=== PATIENT | female | born 1950 | race Caucasian/White ===

== ENCOUNTER → 2016-11-04 | Outpatient (CLI) | payer OTHER ==
[~2016-11-04] MED LIST: ACID REDUCER150 MG PO; AMLODIPINE BESYL5 MG PO; BACTRIM DS TABL1 TA1 PO; BENTYL20 MG PO; CIPRO PO; CLINDAMYCIN HC300 MG PO; FLAGYL PO; IMMODIUM1 MG/5 M1; KEFLEX500 MG PO; LEVAQUIN250 MG PO; LORCET HD 10-31 EACH; LORTAB 7.51 TAB 7.5/ DOB; LORTAB 7.51 TAB PO; LYRICA; METRONIDAZOLE PO; NEURONTIN800 MG PO; NEXIUM PO; NO MEDICATIONS; NORVASC PO; PHENERGAN25 MG PO; PROTONIX PO; PROTONIX40 M1 PO; REMERON15 MG PO; SPIRIVA18 MCG; TRAMADOL HCL50 M1 PO; TRIAMTERENE-HC1 EAC1 PO; VICODIN 5/500 T1 TAB PO; VOLTAREN75 MG PO; ZITHROMAX1 G/PKT PO; ZOFRAN ODT4 MG PO; ZOFRAN PO; ZOLOFT50 MG PO
--- NOTE | ~2016-11-04 | MY11 ---
[facility] A Service of [facility] RADIOLOGY TEXT RESULTS PATIENT: DAI WOOD LOCATION: [facility] : 48 UNIT #: [id number] AGE: [address]: MARLEN MALDONADO MD SEX: F ORDER DR: [id number] [place] [id number] [facility]. [place], [place] [address] [id number] MR#: [id number] Acc #: [id number] NAME: DAI WOOD. : 1950 SEX: F STUDY DATE/TIME: 11/04/2016 13:22 UNIT: [facility] ROOM: STUDY DESCRIPTION: MY Mammogram Screening Dig Donato Attending Physician: Marlen Maldonado M.D. Referring Physician: Marlen Maldonado M.D. Ordering Physician: Marlen Maldonaod M.D. Primary Care Physician: Marlen Maldonado M.D. MEDICAL IMAGING REPORT This report is preliminary unless electronic signature is present EXAM Bilateral digital screening mammogram with CAD. INDICATION Breast cancer screening. 66-year-old asymptomatic female. No personal or family history of breast cancer. COMPARISONS May 25, 2015 and July 29, 2007 FINDINGS There are scattered fibroglandular tissues. No suspicious findings are present. IMPRESSION No mammographic evidence of malignancy. Annual screening mammography and clinical breast exam are recommended. A result letter will be sent to the patient. Patients over the age of 40 are entered into a reminder system with target due date for the next mammogram. BIRADS: 1 Negative Dictated by... Magnus Rainey M.D. THIS IS AN ELECTRONICALLY VERIFIED REPORT Magnus Rainey M.D. at 11/07/2016 2:54 PM LAVELL/susan [facility] A Service [facility] RADIOLOGY TEXT RESULTS PATIENT: DAI WOOD LOCATION: [facility] : 48 UNIT #: [id number] AGE: [address]: MARLEN MALDONADO MD SEX: F ORDER DR: TD: 11/04/2016 17:43 JOB #: [id number] MEDICAL IMAGING REPORT Page 1 of 1 COPY
== END | disposition home or self-care (01) ==
LOC: CECH 12:21
DX: Z12.31 Encounter for screening mammogram for malignant neoplasm of breast (principal); R01.1 Cardiac murmur, unspecified; I08.1 Rheumatic disorders of both mitral and tricuspid valves
CPT/HCPCS: 93306; G0202

== ENCOUNTER 2016-11-26 20:21 | Emergency (ER) | payer OTHER ==
--- NOTE | ~2016-11-26 | CT4 ---
[facility] A Service of [facility] RADIOLOGY TEXT RESULTS PATIENT: DAI WOOD LOCATION: SED : 48 UNIT #: [id number] AGE: [address]: Jose C Tovar SEX: F ORDER DR: [id number] [place] [id number] E MR#: [id number] Acc #: [id number] NAME: DAI WOOD : 1950 SEX: F STUDY DATE/TIME: 11/26/2016 23:11 UNIT: SED ROOM: STUDY DESCRIPTION: CT Abd and Pelv Wo Cont Attending Physician: Jose C Tovar P.A.-C. Ordering Physician: Jose C Tovar P.A.-C. Primary Care Physician: Leticia Danielle M.D. MEDICAL IMAGING REPORT This report is preliminary unless electronic signature is present. EXAM Abdomen and pelvis CT, 11/26 2311 hours INDICATIONS Diarrhea and inability to urinate with abdominal pain for 2 days. Abnormal urinalysis today. Hematuria. TECHNIQUE Axial noncontrast images were obtained through the abdomen and pelvis. Multiplanar reformats were obtained. Comparison made with 07/02/2013. This CT exam was performed with one or more of the following radiation dose reduction techniques: Automatic exposure control, adjustment of mA and/or kV according to patient size, and iterative reconstruction. FINDINGS ABDOMEN: There is some dependent atelectasis in both lung bases. There is coronary artery disease. Gallbladder is surgically absent. There is a tiny, nonobstructing stone in the lower pole of the right kidney. There is a nonobstructing stone in the lower pole of the left kidney measuring 4 mm in size. No ureteral stones are seen on either side, and there is no hydronephrosis. There is fatty infiltration of the liver. Unenhanced solid organs are otherwise normal. No free fluid or adenopathy is seen. The unopacified GI tract is normal. PELVIS: The appendix is normal. The remainder of the unopacified GI tract is normal as well, except for mild sigmoid diverticulosis. No lower ureteral stones. Urinary bladder is normal. Uterus is surgically absent. No free fluid. There is stable mild, grade I spondylolisthesis of L4 on L5. IMPRESSION 1. No acute findings in the abdomen or pelvis. 2. Small, bilateral nonobstructing renal stones. No ureteral stones are STS. [facility] A Service of [facility] RADIOLOGY TEXT RESULTS PATIENT: DAI WOOD LOCATION: [facility] : 48 UNIT #: [id number] AGE: [address]: Jose C Tovar PAC SEX: F ORDER DR: identified, and there is no hydronephrosis. 3. Cholecystectomy and hysterectomy. 4. Mild sigmoid diverticulosis. Normal appendix. 5. Fatty liver. Dictated by... Lucas Kendrick Jr., M.D. THIS IS AN ELECTRONICALLY VERIFIED REPORT Lucas Kendrick Jr., M.D. at 11/27/2016 6:01 AM CRYSTAL/bri TD: 11/27/2016 00:25 JOB #: [id number] MEDICAL IMAGING REPORT Page 1 of 1
[~2016-11-26 20:21] MED LIST changes: -ACID REDUCER150 MG PO; -LORCET HD 10-31 EACH; -NEURONTIN800 MG PO; -PROTONIX40 M1 PO; -SPIRIVA18 MCG; -ZOFRAN PO; -ZOLOFT50 MG PO
[2016-11-26] MEDS ORDERED: ACID REDUCER150 MG PO (21:04)
[2016-11-26] MEDS ORDERED: LORCET HD 10-31 EACH (21:05)
[2016-11-26] MEDS ORDERED: SPIRIVA18 MCG (21:06)
[2016-11-26] MEDS ORDERED: NEURONTIN800 MG PO (21:06)
[2016-11-26 21:18] LABS: BASOPHIL# 0.1 X10e3 (0-0.3); BASOPHIL% 1.4 % (0-2.5); EOSINOPHIL% 0.4 % (0.0-7.0); HEMOGLOBIN 15.8 gm/dL (12.0-16.0); LYMPHOCYTE# 2.5 X10e3 (1.0-3.5); LYMPHOCYTE% 33.2 % (17.0-45.0); MEAN CELL VOLUME 89.2 FL (83-96); MEAN CORPUSCULAR HEMOGLOBIN 31.3 PG (28-34); MEAN CORPUSCULAR HGB CONC 35.1 g/dL (30-36); MEAN PLATELET VOLUME 9.7 FL (6.5-11.5); MONOCYTE# 0.5 X10e3 (0-1.0); MONOCYTE% 7.1 % (3.0-12.0); NEUTROPHIL# 4.4 X10e3 (1.5-7.1); NEUTROPHIL% 57.9 % (40-75); PLATELET COUNT 188 X10e3 (140-420); RED BLOOD COUNT 5.05 X10e (3.90-5.30); RED CELL DISTRIBUTION WIDTH 13.9 % (11.0-15.5); WHITE BLOOD COUNT 7.5 X10e3 (4.0-10.5)
[2016-11-26 21:19] LABS: DIFF IND NO
[2016-11-26 21:37] LABS: ALBUMIN SERUM 4.3 g/dL (3.5-5.0); BILIRUBIN, DIRECT 0.1 mg/dL (0.0-0.2); BILIRUBIN,INDIRECT 0.5 mg/dL (0.0-0.9); BILIRUBIN,TOTAL 0.6 mg/dL (0.2-2.0); BUN/CREATININE RATIO 21.66; CALCIUM SERUM 9.4 mg/dL (8.4-10.2); CREATININE SERUM 1.2 mg/dL (0.6-1.4); GLOM FILT RATE Estimated 46.4 mL/min (>60); POTASSIUM 3.4 mmol/L (3.5-5.1); PROTEIN TOTAL SERUM 7.6 g/dL (6.0-8.3)
[2016-11-26 21:52] LABS: URINE SOURCE CLEAN CATCH
[2016-11-26 21:54] LABS: URINE APPEARANCE HAZY; URINE BILIRUBIN NEG (NEG); URINE BLOOD TRACE-LYSED (NEG); URINE COLOR YELLOW; URINE GLUCOSE NEG (NORM); URINE KETONE 1+ (NEG); URINE LEUKOCYTE ESTERASE 1+ (NEG); URINE NITRATE NEG (NEG); URINE PROTEIN NEG (NEG); URINE UROBILINOGEN 0.2 MG/DL (NORM)
[2016-11-26 21:57] LABS: MICRO INDICATED? YES
[2016-11-26 22:01] LABS: CULTURE INDICATED? YES; URINE AMORPHOUS SEDIMENT AMORP PHOSPHATES; URINE BACTERIA 1+ (NEG); URINE MUCUS PRESENT; URINE SQUAMOUS EPITHELIAL CELL MODERATE /[HPF]
[2016-11-26 22:02] LABS: URINE TRANSITIONAL EPI CELLS FEW /[HPF]
== END 2016-11-27 00:35 | disposition home or self-care (01) ==
LOC: SED 20:21
PROVIDERS: Physician Assistant
DX: R11.2 Nausea with vomiting, unspecified (principal); R19.7 Diarrhea, unspecified; R10.84 Generalized abdominal pain; F17.210 Nicotine dependence, cigarettes, uncomplicated; I10 Essential (primary) hypertension; Z90.49 Acquired absence of other specified parts of digestive tract; Z79.899 Other long term (current) drug therapy
CPT/HCPCS: 36415; 74176; 80048; 80076; 81003; 82150; 83690; 85025; 87086; 96361; 96374; 96375; 99284; J2270; J2405; J2550

== ENCOUNTER 2016-11-27 19:48 | Inpatient (IN) | payer OTHER ==
--- NOTE | ~2016-11-27 | OR ---
Unit #: [id number] #: [id number] Patient: DAI WOOD [id number] [address] [address] [id number] I MR#: [id number] NAME: DAI WOOD. ROOM: 567 Date of Procedure: 11/28/2016 Admission Date: 11/28/2016 Surgeon: Porter West M.D. : 1950 Attending Physician: Violetta Blanco M.D. Primary Care Physician: Leticia Danielle M.D. OPERATIVE REPORT PROCEDURE PERFORMED Esophagogastroduodenoscopy with biopsy. INDICATIONS FOR PROCEDURE Severe epigastric pain, persistent nausea, vomiting, undergoing evaluation with upper endoscopy. MEDICATIONS Monitored anesthesia. POSTOPERATIVE FINDINGS 1. Severe circumferential esophagitis involving distal esophagus. Biopsies taken. 2. Diffuse mild to moderate gastritis. Biopsies taken. 3. Normal duodenum and distal duodenum. PLAN Continue aggressive PPI therapy and symptomatic treatment. DESCRIPTION OF PROCEDURE The patient was explained of the procedure, risks, and benefits along with the risks and benefits of anesthesia. She was brought to the endoscopy room. Propofol anesthesia was given. Bite block was placed. The scope was passed down the mouth into the esophagus, stomach, duodenum, and distal duodenum. Findings as described. Biopsies taken. Gently, I pulled it out of the patient's mouth. She tolerated it well. No major complications were seen. Dictated by... Nany Forrester/giselle TD: 11/28/2016 23:53 JOB #: [id number] Unit #: [id number] #: [id number] Patient: DAI WOOD OPERATIVE REPORT Page 1 of 1 X Porter West MD X PROCEDURE OPERATIVE NOTE
--- NOTE | ~2016-11-27 | CO ---
Unit #: [id number] #: [id number] Patient: DAI WOOD [id number] [facility]. [place], [place] [address] [id number] I MR#: [id number] NAME: DAI WOOD. ROOM: 567 Age: 66 Sex: F Admission Date: 11/28/2016 : 1950 Attending Physician: Violetta Blanco M.D. Primary Care Physician: Leticia Danielle M.D. CONSULTATION REPORT REASON FOR CONSULTATION Persistent nausea and vomiting with diarrhea. HISTORY OF PRESENTING ILLNESS The patient states she was in her usual state of health until about 3 days ago, where she began to have persistent nausea and vomiting. Initially, she noticed dark black stools, but then this gave way to just persistent diarrhea without any noticeable color, nonbloody. She does complain of epigastric pain, burning, severe reflux. Initially, she went to [facility] ER, where she was treated with IV fluids. CT scan was completed at that time, showed only mild diverticular disease, otherwise negative for any acute findings. She was then transferred here for admission and further workup. PAST MEDICAL HISTORY COPD; hypertension; GERD; depression; EGD in 2013, showing a small hiatal hernia, GERD, and mild gastritis; colonoscopy done at that time, also showed multiple polyps; total abdominal hysterectomy; bladder repair; cholecystectomy; bilateral tubal ligation; and tonsillectomy. ALLERGIES None known. HOME MEDICATIONS Spiriva, [place], Zantac, Bentyl, Norvasc, triamterene, Phenergan, Zoloft, Zanaflex, and Neurontin. FAMILY HISTORY Notable for colon cancer. SOCIAL HISTORY The patient lives with her daughter. She is a reformed smoker x9 months. Does not drink alcohol or use illicit drugs. REVIEW OF SYSTEMS A complete 10-point review of systems is completed and negative except as mentioned in the HPI. PHYSICAL EXAMINATION GENERAL: The patient is a 66-year-old female, who is currently lying in bed, moaning. VITAL SIGNS: Temperature 97.7, pulse is 79, respirations 20, blood pressure is 127/62. HEENT: PERRLA. Unit #: [id number] #: [id number] Patient: DAI WOOD NECK: Supple. CARDIAC: S1 and S2. LUNGS: Clear to auscultation. ABDOMEN: Soft, rounded, nontender, and nondistended. Positive bowel sounds. NEUROLOGIC: The patient is alert and awake. DIAGNOSTIC STUDIES IMAGING STUDIES: Again, CT of abdomen and pelvis was completed, which showed no acute findings. LABORATORY RESULTS: BUN and creatinine are 21 and 1.1 respectively, potassium is 3.1. White count is 6.9, hemoglobin is 14.3, hematocrit is 43.1, and platelets are 167. ASSESSMENT AND PLAN 1. Persistent nausea, vomiting, and diarrhea. Diarrhea seems to have subsided at this time. We will check stool study if recurs. Plan EGD for today. Rule out esophagitis, gastritis versus ulcers versus others. Continue PPI therapy for now. Further recommendations to follow scope. 2. Gastroesophageal reflux disease. 3. Chronic obstructive pulmonary disease. Thank you for this interesting consult. We will continue to follow along. Dictated by... Joslyn Garner A.P.R.N. for Nany Forrester/giselle TD: 11/29/2016 14:01 JOB #: [id number] CONSULTATION REPORT Page 1 of 1 X X CONSULTATION REPORT
--- NOTE | ~2016-11-27 | CR4 ---
[facility] A Service of [facility] RADIOLOGY TEXT RESULTS PATIENT: DAI WOOD LOCATION: [facility] 567-01 : 48 UNIT #: [id number] AGE: [address]: Jean Linda MD SEX: F ORDER DR: [id number] [facility] [address] [facility]. [place], [place] [address] [id number] I MR#: [id number] Acc #: [id number] NAME: DAI WOOD. : 1950 SEX: F STUDY DATE/TIME: 12/01/2016 17:42 UNIT: [facility] ROOM: [facility] STUDY DESCRIPTION: CR Abdomen Flat Upright or Dec Attending Physician: Jean Linda M.D. Ordering Physician: Porter West M.D. Primary Care Physician: Leticia Danielle M.D. MEDICAL IMAGING REPORT This report is preliminary unless electronic signature is present EXAM Flat and upright abdomen, 12/01/2016 INDICATIONS 66-year-old female with upper abdominal pain for a year that has gotten worse in the past week. No known injury. Hypertension. Distension and bloating. TECHNIQUE Upright and supine views of the abdomen were performed. Correlation is made with CT 11/26/2016. FINDINGS Upright view demonstrates no free air. The gallbladder is surgically absent. There is gaseous distension of small and large bowel. No dilated air-filled loops are seen. No concerning calcifications or mass effect. Mild degenerative change in the lumbar spine. Probable vascular calcification in the right hemipelvis. IMPRESSION 1. Nonspecific but nonobstructive bowel gas pattern. No evidence of free air. 2. Surgical absence of the gallbladder. Dictated by... Sanchez Marroquin M.D. THIS IS AN ELECTRONICALLY VERIFIED REPORT Sanchez Marroquin M.D. at 12/02/2016 10:11 AM BESTY/bri TD: 12/01/2016 22:33 [facility] A Service of [facility] RADIOLOGY TEXT RESULTS PATIENT: DAI WOOD LOCATION: [facility] 567-01 : [birth year] UNIT #: [id number] AGE: [address]: Jean Linda MD SEX: F ORDER DR: JOB #: [id number] MEDICAL IMAGING REPORT Page 1 of 1 COPY
--- NOTE | ~2016-11-27 | DS ---
Unit #: [id number] #: [id number] Patient: DAI WOOD [id number] [address] [place], [place] [address] [id number] I MR#: [id number] NAME: DAI WOOD. ROOM: 567 Age: 66 Sex: F Admission Date: 11/28/2016 : 1950 Discharge Date: 12/02/2016 Attending Physician: Jean Linda M.D. Primary Care Physician: Leticia Danielle M.D. DISCHARGE SUMMARY ADMITTING DIAGNOSES Nausea, vomiting and diarrhea. FURTHER DIAGNOSES 1. Chronic obstructive pulmonary disease. 2. Hypertension. 3. Possible irritable bowel syndrome. DISCHARGE DIAGNOSES Same as above. CONSULTANTS Dr. Porter West. PROCEDURES DONE EGD. Findings on the EGD - Severe circumferential esophagitis involving distal esophagus. Diffuse ooxa-wv-gugtadgf gastritis. Normal duodenum. HISTORY OF PRESENT ILLNESS The patient is a 66-year-old lady with a past medical history of COPD, hypertension, possible IBS. Presented initially to an outlying emergency room with the chief complaint of intractable nausea, vomiting and diarrhea. She did have CT of the abdomen, which did not show anything acute except for diverticulosis. GI was consulted. She was given p.r.n. Zofran, p.r.n. morphine, p.r.n. Phenergan. Slowly her nausea and vomiting improved. She was also given IV fluids. Her stool studies were negative. She did have an EGD. EGD findings were as mentioned above. She did have EGD biopsy reports are pending at this point. She is doing clinically better. She wants to go home. Will request her to follow with Dr. Porter West as an outpatient to review the biopsies. PHYSICAL EXAMINATION ON THE DAY OF DISCHARGE VITAL SIGNS: Temperature 98.6, pulse rate 68, respirations 16, blood pressure 120/74. GENERAL: The patient is alert and oriented x3, lying in bed, no acute distress. The patient is obese. HEENT: Normocephalic, atraumatic. No icterus. CHEST: Bilateral equal air entry. Clear to auscultation. HEART: S1, S2. Regular rate and rhythm. ABDOMEN: Soft, nontender. EXTREMITIES: No edema. Normal pulses. DISCHARGE MEDICATIONS 1. Zoloft 50 mg in the morning. Unit #: [id number] #: [id number] Patient: DAI WOOD 2. Neurontin 400 mg t.i.d. 3. Spiriva 18 mcg inhalation. 4. Zofran 4 mg q.6 p.r.n. nausea and vomiting. 5. Norvasc 10 mg daily. 6. Ranitidine 150 mg p.o. b.i.d. 7. Hydrocodone/Tylenol 10/325 mg 1 tablet p.o. q.6 p.r.n. pain. She is supposed to get this medication from her primary care. We are not giving any prescriptions. 8. Triamterene/HCTZ 37.5/25 mg 1 capsule p.o. daily. 9. Protonix 40 mg p.o. b.i.d. FOLLOWUP She is instructed to follow with her primary care and with gastroenterology in 1-2 weeks. NOTE: Total time spent in her care - 28 minutes. Dictated by... Nany Mixon/stacy TD: 12/02/2016 15:06 JOB #: [id number] DISCHARGE SUMMARY Page 1 of 1 X X DISCHARGE SUMMARY
--- NOTE | ~2016-11-27 | HP ---
Unit #: [id number] #: [id number] Patient: DAI WOOD [id number] [address] [place], [place] [address] [id number] I MR#: [id number] NAME: DAI WOOD. ROOM: 567 Age: 66 Sex: F Admission Date: 11/28/2016 : 1950 Attending Physician: Mali Mayfield M.D. Primary Care Physician: Leticia Danielle M.D. HISTORY AND PHYSICAL CHIEF COMPLAINT Intractable nausea, vomiting, diarrhea with epigastric pain and dehydration. HISTORY This pleasant 66-year-old female with COPD, hypertension, possible IBS per history, GERD, is admitted for intractable nausea, vomiting and diarrhea. The patient reports a two year history of intermittent GI symptoms. Underwent an EGD and colonoscopy by Dr. West and mild gastritis along with small hiatal hernia was noted along with mild GERD. She had multiple polyps removed from the colon in 2013. Was in her usual state of health until three days ago when she developed dark diarrhea, incontinent of stool at times with nonbloody nausea and vomiting, epigastric pain and also a small amount of bright red blood per rectum. Noticed chills and lightheadedness with this. Went to [facility] ER and was treated with IV fluids. CT scan only revealed fatty liver and mild diverticular disease. Did not feel better and came to this emergency department last evening where she was mildly tachycardic. In the ER, she was given morphine, Zofran, bolused with 2 L of fluid, and a gram of Rocephin for mild pyuria. Denies ill contacts, travel, eating anything out of the ordinary, recent antibiotics. PAST MEDICAL HISTORY 1. COPD. 2. The patient states that she has a history of irritable bowel syndrome per Dr. West. 3. Hypertension. 4. Echo, which was normal in 2010. 5. GERD. 6. Depression. 7. Memory issues per the family. 8. EGD 11/2013 - small hiatal hernia, mild GERD, mild gastritis. 9. Colonoscopy in 2013. Multiple polyps which were snared. 10. Total abdominal hysterectomy. 11. Bladder repair. 12. Cholecystectomy. 13. Tonsillectomy. 14. BTL. 15. Negative cystoscopy 07/2013 for hematuria. ALLERGIES No known drug allergies. Unit #: [id number] #: [id number] Patient: DAI WOOD HOME MEDICATIONS 1. Spiriva, one puff daily. 2. [place] q.4 hours as needed. 3. Zantac 15 mg b.i.d. 4. Bentyl 20 mg q.i.d. p.r.n. 5. Norvasc 10 mg daily. 6. Triamterene 37.5 mg daily. 7. Phenergan 25 mg q.i.d. p.r.n. 8. Zoloft 50 mg daily. 9. Zanaflex 4 mg t.i.d. p.r.n. 10. Neurontin 800 mg t.i.d. FAMILY HISTORY Colon cancer. SOCIAL HISTORY The patient moved in with her daughter. Stopped smoking nine months ago, does not drink alcohol. REVIEW OF SYSTEMS Notable for nausea, vomiting, diarrhea, lightheadedness and pedal edema recently, COPD, IBS, hypertension, polyps, GERD, abdominal pain, above mentioned surgeries. All other systems were reviewed and are otherwise negative. PHYSICAL EXAMINATION GENERAL APPEARANCE: Pleasant 66-year-old female who looks to be mildly uncomfortable. VITAL SIGNS: Temperature 97.6, pulse 117, respirations 18, blood pressure 155/91. O2 saturation is 97% on room air. HEENT: Eyes PERRLA. Extraocular muscles are intact. Pharynx is benign. NECK: Supple without adenopathy or thyromegaly. CHEST: Clear. CARDIAC: Normal S1 and S2. Very soft systolic murmur best heard at the right upper sternal border. ABDOMEN: Bowel sounds are present. Epigastric tenderness without rebound or guarding. No hepatosplenomegaly or masses. EXTREMITIES: Without edema. Pedal pulses are present but diminished. No ulcers on the feet. NEUROLOGIC EXAM: The patient is awake, alert, oriented. Cranial nerves are intact. Equal strength throughout. DIAGNOSTIC STUDIES LABORATORY: Admission labs - hematocrit is 46.8, white blood count is 11.4, normal platelet count. SMA-12 - BUN 28, potassium 3.3, CO2 is 20, ALT 80, alkaline phos. 108, lipase normal. Urinalysis - 2+ leukocyte esterase, 10-25 white cells, 5-10 red cells, 3+ bacteria but moderate squamous cells making this a poor specimen. IMAGING: CT scan 11/26/2016 - fatty liver, mild diverticular disease. ASSESSMENT 1. Nausea, vomiting, diarrhea for the past three days: May represent gastroenteritis. The patient, however, does have epigastric pain with the above. Has been experiencing GI issues for the past two Unit #: [id number] #: [id number] Patient: DAI WOOD D years with working diagnosis of irritable bowel syndrome. She is status post multiple polypectomies. 2. Gastroesophageal reflux disease: Mild gastritis on EGD in the past. 3. Hypertension. 4. Chronic obstructive pulmonary disease. 5. Hypokalemia, mild dehydration. 6. Pyuria which could be contamination as this was a poor sample versus urinary tract infection. PLANS 1. IV fluids and supportive treatment. 2. Proton pump inhibitor for now. 3. Stool cultures, check thyroid function tests. Family his concerned about celiac sprue. Therefore, will check antibody test. 4. GI to see. Patient is followed by Dr. West and she requests Dr. West to see her in the morning. 5. Replace potassium, check magnesium and repeat labs in the morning. 6. SCDs for DVT prophylaxis. 7. The patient received one dose of antibiotics pending urine C and S in the ER. Dictated by Mali Mayfield M.D. AML/df TD: 11/28/2016 05:22 JOB #: [id number] HISTORY AND PHYSICAL Page 1 of 1 X Mali Mayfield MD X HISTORY AND PHYSICAL
[~2016-11-27 19:48] MED LIST changes: +ACID REDUCER150 MG PO; +LORCET HD 10-31 EACH; +NEURONTIN800 MG PO; +SPIRIVA18 MCG
[2016-11-27 21:44] LABS: BASOPHIL# 0.1 X10e3 (0-0.3); BASOPHIL% 0.9 % (0-2.5); EOSINOPHIL% 0.2 % (0.0-7.0); HEMATOCRIT 46.8 % (35.0-45.0); HEMOGLOBIN 15.8 gm/dL (12.0-16.0); LYMPHOCYTE# 2.9 X10e3 (1.0-3.5); LYMPHOCYTE% 25.8 % (17.0-45.0); MEAN CELL VOLUME 89.1 FL (83-96); MEAN CORPUSCULAR HEMOGLOBIN 30.1 PG (28-34); MEAN CORPUSCULAR HGB CONC 33.7 g/dL (30-36); MEAN PLATELET VOLUME 9.6 FL (6.5-11.5); MONOCYTE# 0.7 X10e3 (0-1.0); MONOCYTE% 6.6 % (3.0-12.0); NEUTROPHIL# 7.6 X10e3 (1.5-7.1); NEUTROPHIL% 66.5 % (40-75); PLATELET COUNT 200 X10e3 (140-420); RED BLOOD COUNT 5.25 X10e (3.90-5.30); RED CELL DISTRIBUTION WIDTH 13.7 % (11.0-15.5)
[2016-11-27 21:46] LABS: DIFF IND NO; WHITE BLOOD COUNT 11.4 X10e3 (4.0-10.5)
[2016-11-27 22:08] LABS: ALBUMIN SERUM 4.7 g/dL (3.5-5.0); BILIRUBIN, DIRECT 0.1 mg/dL (0.0-0.2); BILIRUBIN,INDIRECT 0.9 mg/dL (0.0-0.9); BUN/CREATININE RATIO 21.53; CALCIUM SERUM 9.7 mg/dL (8.4-10.2); CREATININE SERUM 1.3 mg/dL (0.6-1.4); GLOM FILT RATE Estimated 42.1 mL/min (>60); POTASSIUM 3.3 mmol/L (3.5-5.1); PROTEIN TOTAL SERUM 8.2 g/dL (6.0-8.3)
[2016-11-28 00:20] LABS: URINE SOURCE CLEAN CATCH
[2016-11-28 00:24] LABS: URINE APPEARANCE CLOUDY; URINE BILIRUBIN NEG (NEG); URINE BLOOD 1+ (NEG); URINE COLOR YELLOW; URINE GLUCOSE NEG (NEG); URINE KETONE 2+ (NEG); URINE LEUKOCYTE ESTERASE 2+ (NEG); URINE NITRATE NEG (NEG); URINE PROTEIN NEG (NEG); URINE SPECIFIC GRAVITY 1.014 (1.003-1.035); URINE UROBILINOGEN 0.2 MG/DL (NEG)
[2016-11-28 00:26] LABS: CULTURE INDICATED? YES; URINE BACTERIA AUWI 3+ (NEGATIVE); URINE SQUAMOUS EPITHELIAL CELL MOD /[HPF]
[2016-11-28 09:59] LABS: BASOPHIL% 0.7 % (0-2.5); EOSINOPHIL# 0.1 X10e3 (0-0.7); HEMATOCRIT 43.1 % (35.0-45.0); HEMOGLOBIN 14.3 gm/dL (12.0-16.0); LYMPHOCYTE# 2.1 X10e3 (1.0-3.5); MEAN CELL VOLUME 90.5 FL (83-96); MEAN CORPUSCULAR HGB CONC 33.2 g/dL (30-36); MEAN PLATELET VOLUME 10.2 FL (6.5-11.5); MONOCYTE# 0.6 X10e3 (0-1.0); MONOCYTE% 8.7 % (3.0-12.0); NEUTROPHIL% 58.6 % (40-75); PLATELET COUNT 167 X10e3 (140-420); RED BLOOD COUNT 4.76 X10e (3.90-5.30); RED CELL DISTRIBUTION WIDTH 13.8 % (11.0-15.5); WHITE BLOOD COUNT 6.9 X10e3 (4.0-10.5)
[2016-11-28 10:05] LABS: DIFF IND NO
[2016-11-28 10:32] LABS: THYROID STIMULATING HORMONE 0.71 uIU/ml (0.34-5.60)
[2016-11-28 11:02] LABS: ALBUMIN SERUM 3.9 g/dL (3.5-5.0); BILIRUBIN,TOTAL 0.7 mg/dL (0.2-2.0); BUN/CREATININE RATIO 19.09; CALCIUM SERUM 8.9 mg/dL (8.4-10.2); CREATININE SERUM 1.1 mg/dL (0.6-1.4); GLOM FILT RATE Estimated 51.6 mL/min (>60); MAGNESIUM 2.1 mg/dL (1.6-3.0); POTASSIUM 3.1 mmol/L (3.5-5.1)
[2016-11-29 06:29] LABS: HEMATOCRIT 41.7 % (35.0-45.0); HEMOGLOBIN 13.8 gm/dL (12.0-16.0); MEAN CORPUSCULAR HEMOGLOBIN 30.2 PG (28-34); MEAN CORPUSCULAR HGB CONC 33.2 g/dL (30-36); RED BLOOD COUNT 4.58 X10e (3.90-5.30); RED CELL DISTRIBUTION WIDTH 14.2 % (11.0-15.5); WHITE BLOOD COUNT 6.9 X10e3 (4.0-10.5)
[2016-11-29 07:15] LABS: ALBUMIN SERUM 3.6 g/dL (3.5-5.0); BILIRUBIN,TOTAL 0.8 mg/dL (0.2-2.0); BUN/CREATININE RATIO 12.72; CALCIUM SERUM 9.1 mg/dL (8.4-10.2); CREATININE SERUM 1.1 mg/dL (0.6-1.4); GLOM FILT RATE Estimated 51.6 mL/min (>60); PROTEIN TOTAL SERUM 6.3 g/dL (6.0-8.3)
[2016-11-30 08:51] LABS: BUN/CREATININE RATIO 9.09; CALCIUM SERUM 9.2 mg/dL (8.4-10.2); CREATININE SERUM 1.1 mg/dL (0.6-1.4); GLOM FILT RATE Estimated 51.6 mL/min (>60); POTASSIUM 3.4 mmol/L (3.5-5.1)
[2016-11-30 16:59] LABS: TISSUE TRANSGLUTAMINASE IGA AB 1 U/mL (<4); TISSUE TRANSGLUTAMINASE IGG 1 U/mL (<6)
[2016-12-02 07:07] LABS: HEMATOCRIT 41.6 % (35.0-45.0); HEMOGLOBIN 13.6 gm/dL (12.0-16.0); MEAN CORPUSCULAR HEMOGLOBIN 30.4 PG (28-34); MEAN CORPUSCULAR HGB CONC 32.7 g/dL (30-36); MEAN PLATELET VOLUME 10.2 FL (6.5-11.5); RED BLOOD COUNT 4.47 X10e (3.90-5.30); RED CELL DISTRIBUTION WIDTH 14.2 % (11.0-15.5); WHITE BLOOD COUNT 6.1 X10e3 (4.0-10.5)
[2016-12-02 07:45] LABS: ALBUMIN SERUM 3.5 g/dL (3.5-5.0); BILIRUBIN,TOTAL 0.7 mg/dL (0.2-2.0); BUN/CREATININE RATIO 8.88; CALCIUM SERUM 9.4 mg/dL (8.4-10.2); CREATININE SERUM 0.9 mg/dL (0.6-1.4); GLOM FILT RATE Estimated 65.7 mL/min (>60); POTASSIUM 4.1 mmol/L (3.5-5.1); PROTEIN TOTAL SERUM 6.3 g/dL (6.0-8.3)
[2016-12-02] MEDS ORDERED: ZOFRAN PO (15:26)
[2016-12-02] MEDS ORDERED: PROTONIX40 M1 PO (15:27)
[2016-12-02] MEDS ORDERED: ZOLOFT50 MG PO (15:37)
[2016-12-02] MEDS ORDERED: PROTONIX PO (15:38)
== END 2016-12-02 17:58 | disposition home or self-care (01) | DRG 392 ==
LOC: CED 19:48 → CEDOF 11-28 02:04 → CED 11-28 02:04 → C5C 11-28 02:25 → CEDOF 11-28 02:25 → C5C 11-28 02:25 → CED 11-28 02:25 → CEDOF 11-28 04:09 → C5C 11-28 04:09
PROVIDERS: Emergency Medicine; Internal Medicine
PROC: 0DB68ZX Excision of Stomach, Via Natural or Artificial Opening Endoscopic, Diagnostic (ICD-10-PCS; principal; 2016-11-28 16:40)
PROC: 0DB58ZX Excision of Esophagus, Via Natural or Artificial Opening Endoscopic, Diagnostic (ICD-10-PCS; 2016-11-28 16:40)
DX: K20.9 Esophagitis, unspecified (principal); J44.9 Chronic obstructive pulmonary disease, unspecified; I10 Essential (primary) hypertension; K21.0 Gastro-esophageal reflux disease with esophagitis; K29.70 Gastritis, unspecified, without bleeding; Z80.0 Family history of malignant neoplasm of digestive organs; Z86.010 Personal history of colon polyps; E87.6 Hypokalemia; Z79.899 Other long term (current) drug therapy; Z87.891 Personal history of nicotine dependence; Z90.49 Acquired absence of other specified parts of digestive tract; Z90.710 Acquired absence of both cervix and uterus; Z98.51 Tubal ligation status; E66.9 Obesity, unspecified; Z68.33 Body mass index [BMI] 33.0-33.9, adult; E86.0 Dehydration; R11.2 Nausea with vomiting, unspecified; R19.7 Diarrhea, unspecified
CPT/HCPCS: 36415; 74020; 80048; 80053; 80076; 81003; 83516; 83690; 83735; 84439; 84443; 85025; 85027; 87045; 87086; 87427; 87493; 87899; 88305; 88312; 94640; 94760; 96361; 96374; 96375; 96376; 99285; C9113; J0696; J2270; J2405